=== PATIENT | male | born 1995 | race Caucasian/White ===

== ENCOUNTER 2018-12-22 21:09 | Emergency (ER) | payer BC ==
[2018-12-22] MEDS ORDERED: ASPIRIN 81 MG TABLET, CHEWABLE PO ONE (23:54)
--- NOTE | 2018-12-22 23:54 | ER Document Report ---
ED Medical Screen (RME) - General Chief Complaint: Chest Pain Stated Complaint: CHEST PAIN Time Seen by Provider: 12/22/18 23:51 Mode of Arrival: Ambulatory Information source: Patient Notes: 23-year-old male presented to ED for complaint of pain to the left shoulder to the scapula down the arm up the neck since about noon. He states it was sharp pain suddenly at around noon when he was driving and it is progressed up to a 5/5 pain by 9:00. He states now his pain is level 3/5. He states he did not injure and he did not do anything to the arm that would cause this pain. He has no pain to palpation. He does have pain to any range of motion to the shoulder or neck. Patient is alert oriented respirations regular and unlabored speaking in full sentences walks with a even steady gait. Patient states he did take Tylenol before coming to the emergency room I have greeted and performed a rapid initial assessment of this patient. A comprehensive ED assessment and evaluation of the patient, analysis of test results and completion of medical decision making process will be conducted by an additional ED providers. Dictation of this chart was performed using voice recognition software; therefore, there may be some unintended grammatical errors. Physical Exam - Vital signs Vitals: Temp Pulse BP Pulse Ox 98.4 F 106 H 152/68 H 100 12/22/18 21:25 12/22/18 21:25 12/22/18 21:25 12/22/18 21:25 Course - Vital Signs Vital signs: Temp Pulse Resp BP Pulse Ox 98.4 F 106 H 152/68 H 100 12/22/18 21:25 12/22/18 21:25 12/22/18 21:25 12/22/18 21:25
[2018-12-23 00:11] LABS: ABSOLUTE BASOPHILS # (AUTO) 0.1 10^3/uL (0.0-0.2); ABSOLUTE EOSINOPHILS # (AUTO) 0.3 10^3/uL (0.0-0.6); ABSOLUTE LYMPHOCYTES (AUTO) 1.8 10^3/uL (0.5-4.7); ABSOLUTE MONOCYTES (AUTO) 0.6 10^3/uL (0.1-1.4); ABSOLUTE NEUT (AUTO) 6.5 10^3/uL (1.7-8.2); BASOPHILS % (AUTO) 0.6 % (0-2); EOSINOPHILS % (AUTO) 3.3 % (0-6); HEMATOCRIT 44.7 % (37.9-51.0); HEMOGLOBIN 15.3 g/dL (13.5-17.0); LYMPHOCYTES % (AUTO) 19.8 % (13-45); MEAN CORPUSCULAR HEMOGLOBIN 30.5 pg (27.0-33.4); MEAN CORPUSCULAR HGB CONC 34.3 g/dL (32.0-36.0); MEAN CORPUSCULAR VOLUME 89 fl (80-97); MONOCYTES % (AUTO) 6.7 % (3-13); PLATELET COUNT 258 10^3/uL (150-450); RED BLOOD COUNT 5.02 10^6/uL (4.35-5.55); RED CELL DISTRIBUTION WIDTH 12.6 % (11.5-14.0); SEGMENTED NEUTROPHILS % (AUTO) 69.6 % (42-78); TOTAL CELLS COUNTED % (AUTO) 100 %; WHITE BLOOD COUNT 9.4 10^3/uL (4.0-10.5)
--- NOTE | 2018-12-23 00:31 | RADIOLOGY REPORT (SQ) ---
EXAM DESCRIPTION: XR CHEST 2 VIEWS COMPLETED DATE/TME: 12/22/2018 23:51 CLINICAL HISTORY: 23 years, Male, Pain left chest, shoulder, scapula, neck, down arm Comparison: None FINDINGS: No focal lung consolidation. No pleural effusion. No pneumothorax. Cardiac and mediastinal silhouette is unremarkable. No acute osseous abnormality. Soft tissues are unremarkable. IMPRESSION: No acute findings. No focal lung consolidation.
[2018-12-23 00:33] LABS: ALANINE AMINOTRANSFERASE 31 U/L (21-72); ALBUMIN 4.9 g/dL (3.5-5.0); ALKALINE PHOSPHATASE 78 U/L (38-126); ANION GAP 10 (5-19); ASPARTATE AMINO TRANSFERASE 28 U/L (17-59); BILIRUBIN,DIRECT 0.2 mg/dL (0.0-0.4); BILIRUBIN,TOTAL 0.5 mg/dL (0.2-1.3); BLOOD UREA NITROGEN 14 mg/dL (7-20); CALCIUM 9.7 mg/dL (8.4-10.2); CARBON DIOXIDE 28 mmol/L (22-30); CHLORIDE 102 mmol/L (98-107); GLUCOSE 120 mg/dL (75-110); POTASSIUM 4.2 mmol/L (3.6-5.0); SODIUM 140.4 mmol/L (137-145); TOTAL PROTEIN 7.9 g/dL (6.3-8.2)
--- NOTE | 2018-12-23 00:33 | RADIOLOGY REPORT (SQ) ---
EXAM DESCRIPTION: XR SHOULDER 2 OR MORE VIEWS COMPLETED DATE/TME: 12/22/2018 23:51 CLINICAL HISTORY: 23 years, Male, Pain left chest, shoulder, scapula, neck, down arm COMPARISON: None. FINDINGS: No fracture or dislocation. Soft tissues are unremarkable. IMPRESSION: No acute abnormality.
[2018-12-23 00:45] LABS: CREATINE KINASE MB 1.45 ng/mL (<4.55)
[2018-12-23 00:46] LABS: TROPONIN I < 0.012 ng/mL
[2018-12-23] MEDS ORDERED: METHOCARBAMOL 750 MG TABLET PO ONE (05:53)
[2018-12-23 06:32] VITALS: BP 138/84
--- NOTE | 2018-12-23 08:35 | ER Document Report ---
Entered by SHARRI VILLARREAL SCRIBE 12/23/18 0554 Acting as scribe for:YULIA RUIZ DO ED General - General Chief Complaint: Chest Pain Stated Complaint: CHEST PAIN Time Seen by Provider: 12/22/18 23:51 Mode of Arrival: Ambulatory Notes: Patient is a 23-year-old male presenting to the emergency department complaining of left-sided upper chest and left shoulder pain. Patient states that it began yesterday about 1220 yesterday [address], he also had left neck pain start. Patient states that he took Tylenol but it did not help. It gradually got worse after starting and has not gotten better. Patient states that he has been having spasms in his shoulder blades, radiating into his neck and up behind his left ear. Patient states that the pain gets worse anytime he laughs, coughs, sneezes, moves around. Patient states he has had numbness and tingling in his feet and hands while he is trying to breathe through the pain. Patient states he is having difficulty rotating his neck to the left or bending it to the left. Denies any trauma, denies this ever happening before. Past Medical History - General Information source: Patient - Social History Smoking Status: Never Smoker Cigarette use (# per day): No Chew tobacco use (# tins/day): Yes Frequency of alcohol use: None Drug Abuse: None Family History: Reviewed & Not Pertinent Review of Systems - Review of Systems Constitutional: No symptoms reported EENT: See HPI - Neck pain Cardiovascular: No symptoms reported Respiratory: No symptoms reported Gastrointestinal: No symptoms reported Genitourinary: No symptoms reported Male Genitourinary: No symptoms reported Musculoskeletal: See HPI, Neck pain Skin: No symptoms reported Hematologic/Lymphatic: No symptoms reported Neurological/Psychological: See HPI, Numbness, Tingling -: Yes All other systems reviewed and negative Physical Exam - Vital signs Vitals: Temp Pulse BP Pulse Ox 98.4 F 106 H 152/68 H 100 12/22/18 21:25 12/22/18 21:25 12/22/18 21:25 12/22/18 21:25 Interpretation: Hypertensive, Tachycardic - Notes Notes: PHYSICAL EXAM GENERAL: Alert, interacts well. No acute distress. HEAD: Normocephalic. Atraumatic. EYES: Pupils equal, round, and reactive to light. Extraocular movements intact. ENT: Oral mucosa moist, tongue midline. NECK: Trapezius musculature tenderness to palpation. Posterior cervical musculature tenderness to palpation. Left sternocleidomastoid muscule tenderness to palpation. Rotating, side bending the neck to the left is difficult. No difficulty with flexion extension trachea midline. LUNGS: Clear to auscultation bilaterally, no wheezes, rales, or rhonchi. No respiratory distress. HEART: Regular rate and rhythm. No murmurs, gallops, or rubs. ABDOMEN: Soft, non-tender. Non-distended. Bowel sounds present in all 4 quadrants. No guarding, rigidity, or rebound. EXTREMITIES: Moves all 4 extremities spontaneously. No edema, No cyanosis. NEUROLOGICAL: Alert and oriented x3. Normal speech. Biceps and patellar DTRs 2+ bilaterally. 5 out of 5 muscle strength bilaterally in the upper extremities. PSYCH: Normal affect, normal mood. SKIN: Warm, dry, normal turgor. No rashes or lesions noted. Course - Re-evaluation Re-evalutation: 12/23/18 05:59 CBC unremarkable, CMP shows slightly elevated glucose at 120 however this is not fasting, troponin negative, chest and shoulder x-ray negative, EKG is nonischemic. Pain is reproducible on examination. Patient's history is consistent with trapezius muscle spasm though his exam is slightly confusing because he is twisted away from the trapezius rather than towards the left trapezius. There is no neurologic deficit, there is no pain. There is no indication for further imaging at this time. Patient will be discharged to home with muscle relaxers. - Vital Signs Vital signs: Temp Pulse Resp BP Pulse Ox 98.7 F 78 18 138/84 H 100 12/23/18 06:30 12/23/18 06:30 12/23/18 06:30 12/23/18 06:30 12/23/18 06:30 - Laboratory Result Diagrams: 12/22/18 23:55 12/22/18 23:55 Laboratory results interpreted by me: 12/22/18 23:55 Glucose 120 H - EKG Interpretation by Me Additional EKG results interpreted by me: 12/23/18 06:01 EKG shows sinus rhythm rate 97, left ventricular hypertrophy, no ST segment elevations or depressions, there are T wave inversions noted in V2, normal axis, normal intervals per my interpretation. Discharge - Discharge Clinical Impression: Cervical paraspinal muscle spasm, Trapezius muscle spasm Condition: Stable Disposition: HOME, SELF-CARE Additional Instructions: Torticollis You have torticollis, often called "wry neck." This is due to spasm of neck muscles -- locking the neck into a crooked position. Many different problems can lead to torticollis, such as a minor injury, sleeping with tension on the neck, or inflammation in the glands of the neck. Torticollis is usually treated with heat to relax the neck muscles, but the physician may recommend cold packs if a minor injury is suspected as the cause. Muscle relaxing and antiinflammatory medicine are often prescribed. Improvement is usually rapid. Usually, the neck can be moved fully within two days, although some pain may persist for a few weeks. Call the doctor at once if you worsen, or if you develop high fever, severe headache, numbness or weakness, or other alarming symptoms. Please use ibuprofen (Motrin or Advil) 600-800 mg every 8 hours as needed for pain or fever. You may also use acetaminophen (Tylenol) 1000 mg every 4-6 hours as needed for pain or fever. Please be aware that many medications contain acetaminophen, do not exceed a total of 1000 mg of acetaminophen every 6 hours. Prescriptions: Methocarbamol [Robaxin 750 mg Tablet] 750 mg PO ASDIR PRN #40 tablet PRN Reason: I personally performed the services described in the documentation, reviewed and edited the documentation which was dictated to the scribe in my presence, and it accurately records my words and actions.
--- NOTE | 2018-12-23 19:04 | EKG REPORT ---
SEVERITY:- ABNORMAL ECG - SINUS RHYTHM PROBABLE LEFT VENTRICULAR HYPERTROPHY : Confirmed by: Gamal Blank MD 23-Dec-2018 19:04:10
== END 2018-12-23 06:28 | disposition home or self-care (01) ==
LOC: ER 21:09
DX: M62.830 Muscle spasm of back (principal); M54.2 Cervicalgia; M54.6 Pain in thoracic spine; R07.9 Chest pain, unspecified; M25.512 Pain in left shoulder; H92.02 Otalgia, left ear; R20.0 Anesthesia of skin
CPT/HCPCS: 93005; 99285; 36415; 82553; 85025; 80053; 84484; 71046; 73030; 93010; J3490